=== PATIENT | male | born 1935 | race Caucasian/White ===

== ENCOUNTER 2021-11-08 12:06 | Inpatient (IN) | payer MEDICARE ==
[~2021-11-08] VITALS: Ht 180.3 cm; Wt 65.8 kg
[2021-11-08] MEDS ORDERED: CEFTRIAXONE 1 GM VIAL IM ONE (12:45)
[2021-11-08] MEDS ORDERED: ACETAMINOPHEN 325 MG TAB PO ONE (12:45)
[2021-11-08] MEDS ORDERED: SODIUM CHLORIDE 0.9% 500ML 500 ML IV ONE (12:45)
[2021-11-08] MEDS ORDERED: ALBUTEROL SULFATE HFA 8GM INHALATION AEROSOL INH PRN (12:45)
[2021-11-08 13:13] LABS: BASOPHILS # (AUTO) 0.1 (0.0-0.1); BASOPHILS % 0.6 % (0.0-1.0); EOSINOPHILS # (AUTO) 0.1 (0.0-0.4); EOSINOPHILS % 0.3 % (0.0-6.0); HEMATOCRIT 43.3 % (38.2-49.6); HEMOGLOBIN 13.2 g/dL (14.0-18.0); LYMPHOCYTES # (AUTO) 3.2 (1.0-3.2); LYMPHOCYTES % 20.2 % (18.0-39.1); MEAN CORPUSCULAR HEMOGLOBIN 31.1 pg (28-32); MEAN CORPUSCULAR HGB CONC 30.5 g/dL (31-35); MEAN CORPUSCULAR VOLUME 101.9 fL (81-99); MONOCYTES # (AUTO) 1.8 (0.2-0.8); MONOCYTES % 11.6 % (4.4-11.3); NEUTROPHILS # (AUTO) 10.5 (2.1-6.9); NEUTROPHILS % 66.8 % (38.7-80.0); PLATELET COUNT 139 x10e3/uL (140-360); RED BLOOD COUNT 4.25 x10e6/uL (4.3-5.7); RED CELL DISTRIBUTION WIDTH 16.6 % (11.7-14.4)
[2021-11-08] MEDS ORDERED: CEFTRIAXONE 1 GM in SODIUM CHLORIDE 0.9% 50ML 50 ML IV ONE (13:15)
[2021-11-08 13:18] LABS: INR 0.97; PROTHROMBIN TIME 13.7 seconds (11.9-14.5)
[2021-11-08 13:19] LABS: PARTIAL THROMBOPLASTIN TIME 35.1 seconds (23.8-35.5)
[2021-11-08 14:29] LABS: ALBUMIN/GLOBULIN RATIO 0.5 (0.8-2.0); ALKALINE PHOSPHATASE 99 IU/L (40-150); ANION GAP 14.4 mmol/L (8-16); BLOOD UREA NITROGEN 29 mg/dL (7-26); BUN/CREATININE RATIO 35 (6-25); CALCIUM 7.8 mg/dL (8.4-10.2); CARBON DIOXIDE 20 mmol/L (22-29); CHLORIDE 110 mmol/L (98-107); CREATINE KINASE 120 IU/L (30-200); CREATININE, SERUM 0.84 mg/dL (0.72-1.25); EST GLOMERULAR FILTRATION RATE 86 ML/MIN (60-); GLUCOSE 101 mg/dL (74-118); POTASSIUM 4.4 mmol/L (3.5-5.1); SODIUM 140 mmol/L (136-145)
[2021-11-08 14:30] LABS: ALANINE AMINOTRANSFERASE < 6 IU/L (0-55)
[2021-11-08 14:39] LABS: CLARITY,URINE CLEAR (CLEAR); COLOR,URINE YELLOW (YELLOW); LEUKOCYTE ESTERASE ,URINE NEGATIVE (NEGATIVE); NITRITE,URINE NEGATIVE (NEGATIVE); PROTEIN,URINE DIPSTICK TRACE (NEGATIVE)
[2021-11-08 14:40] LABS: KETONES,URINE NEGATIVE (NEGATIVE); URINE UROBILINOGEN 0.2 mg/dL (0.2 - 1)
[2021-11-08 14:50] LABS: MUCUS,URINE FEW (RARE)
[2021-11-08] MEDS ORDERED: SODIUM CHLORIDE 0.9% 250ML 250 ML ONE (14:58)
[2021-11-08] MEDS ORDERED: ALBUTEROL/IPRATROPIUM 3 ML NEB NEB ONE (15:45)
[2021-11-08] MEDS ORDERED: ALBUTEROL SULF 0.083% NEB SOLN 3 ML NEB ONE (16:01)
[2021-11-08] MEDS ORDERED: KEFLEX750 MG (16:10)
[2021-11-08] MEDS ORDERED: METOPROLOL TART50 MG PO (16:10)
[2021-11-08] MEDS ORDERED: TIMOLOL MALEAT1 EACH (16:14)
[2021-11-08] MEDS ORDERED: VOLTAREN ARTHRI20 GM (16:14)
[2021-11-08] MEDS ORDERED: TEMAZEPAM30 MG (16:14)
[2021-11-08] MEDS ORDERED: VITAMIN B122500 MCG (16:14)
[2021-11-08] MEDS ORDERED: VITAMIN D3 COM1 EACH PO (16:14)
[2021-11-08] MEDS ORDERED: HYDROCODON-ACE1 EAC9 (16:14)
[2021-11-08] MEDS ORDERED: LUMIGAN2.5 M1 OP (16:14)
[2021-11-08] MEDS: SODIUM CHLORIDE 0.9% 1000ML 1,000 ML IV SCH ×2 (16:26→23:54)
[2021-11-08] MEDS: Vancomycin IV 1 GM in SODIUM CHLORIDE 0.9% 250ML 250 ML IV SCH (16:27)
[2021-11-08] MEDS: METOPROLOL TARTRATE 50 MG TAB PO SCH (16:27)
[2021-11-08] MEDS ORDERED: DICLOFENAC SOD 1% GEL 100 GM TUBE TP PRN (16:30)
[2021-11-08 17:15] LABS: CREATINE KINASE MB 2.9 ng/mL (0-5.0)
[2021-11-08 18:18] VITALS: BP 121/78
[2021-11-08 18:21] VITALS: BP 121/78
[2021-11-08 20:00] VITALS: BP 107/80
[2021-11-08] MEDS ORDERED: MAGNESIUM/ALUMINUM/SIMETHICONE 30 ML UDC PO ONE (20:45)
[2021-11-08] MEDS: BIMATOPROST(OPTH) 2.5 ML BOTTLE OP SCH (21:10)
[2021-11-08] MEDS: CEFTRIAXONE 1 GM in SODIUM CHLORIDE 0.9% 50ML 50 ML IV SCH (21:10)
[2021-11-08] MEDS: HYDROCODONE/APAP 7.5MG-325MG 1 EA TAB PO PRN (21:10)
[2021-11-09] VITALS (9 sets, daily range): BP systolic 99–152; BP diastolic 51–82
[2021-11-09] MEDS: HYDROCODONE/APAP 7.5MG-325MG 1 EA TAB PO PRN ×4 (01:25→18:29)
[2021-11-09 05:30] LABS: BASOPHILS # (AUTO) 0.1 (0.0-0.1); BASOPHILS % 0.6 % (0.0-1.0); EOSINOPHILS % 0.1 % (0.0-6.0); HEMATOCRIT 34.5 % (38.2-49.6); HEMOGLOBIN 10.8 g/dL (14.0-18.0); LYMPHOCYTES # (AUTO) 2.7 (1.0-3.2); LYMPHOCYTES % 16.6 % (18.0-39.1); MEAN CORPUSCULAR HEMOGLOBIN 30.6 pg (28-32); MEAN CORPUSCULAR HGB CONC 31.3 g/dL (31-35); MEAN CORPUSCULAR VOLUME 97.7 fL (81-99); MONOCYTES # (AUTO) 2.1 (0.2-0.8); MONOCYTES % 12.8 % (4.4-11.3); NEUTROPHILS # (AUTO) 11.3 (2.1-6.9); NEUTROPHILS % 69.3 % (38.7-80.0); PLATELET COUNT 144 x10e3/uL (140-360); RED BLOOD COUNT 3.53 x10e6/uL (4.3-5.7); RED CELL DISTRIBUTION WIDTH 16.2 % (11.7-14.4)
[2021-11-09] MEDS: Vancomycin IV 1 GM in SODIUM CHLORIDE 0.9% 250ML 250 ML IV SCH ×2 (05:35→17:30)
[2021-11-09 05:58] LABS: ALBUMIN 1.7 g/dL (3.5-5.0); ALBUMIN/GLOBULIN RATIO 0.5 (0.8-2.0); ALKALINE PHOSPHATASE 87 IU/L (40-150); ANION GAP 12.6 mmol/L (8-16); BLOOD UREA NITROGEN 24 mg/dL (7-26); BUN/CREATININE RATIO 32 (6-25); CALCIUM 7.5 mg/dL (8.4-10.2); CARBON DIOXIDE 22 mmol/L (22-29); CHLORIDE 110 mmol/L (98-107); CREATININE, SERUM 0.74 mg/dL (0.72-1.25); EST GLOMERULAR FILTRATION RATE 100 ML/MIN (60-); GLUCOSE 99 mg/dL (74-118); POTASSIUM 3.6 mmol/L (3.5-5.1); SODIUM 141 mmol/L (136-145)
[2021-11-09 06:14] LABS: ALANINE AMINOTRANSFERASE < 6 IU/L (0-55)
[2021-11-09 08:30] LABS: CREATINE KINASE MB 1.5 ng/mL (0-5.0)
[2021-11-09] MEDS: FAMOTIDINE 20 MG TAB PO SCH ×2 (08:53→17:30)
[2021-11-09] MEDS: METOPROLOL TARTRATE 50 MG TAB PO SCH ×2 (08:53→17:30)
[2021-11-09] MEDS: ALBUTEROL/IPRATROPIUM 3 ML NEB NEB SCH ×3 (09:00→19:35)
[2021-11-09] MEDS: CEFTRIAXONE 1 GM in SODIUM CHLORIDE 0.9% 50ML 50 ML IV SCH ×2 (09:01→20:34)
[2021-11-09] MEDS: BIMATOPROST(OPTH) 2.5 ML BOTTLE OP SCH (20:34)
[2021-11-09] MEDS: MUPIROCIN 2% OINT 22 GM TUBE TOP SCH (20:35)
[2021-11-10] VITALS (8 sets, daily range): BP systolic 125–152; BP diastolic 57–91
[2021-11-10] MEDS: ALBUTEROL/IPRATROPIUM 3 ML NEB NEB SCH ×4 (00:50→19:25)
[2021-11-10] MEDS: Vancomycin IV 1 GM in SODIUM CHLORIDE 0.9% 250ML 250 ML IV SCH (05:30)
[2021-11-10 05:36] LABS: BASOPHILS # (AUTO) 0.1 (0.0-0.1); BASOPHILS % 0.4 % (0.0-1.0); EOSINOPHILS # (AUTO) 0.1 (0.0-0.4); EOSINOPHILS % 0.4 % (0.0-6.0); HEMATOCRIT 34.6 % (38.2-49.6); HEMOGLOBIN 11.1 g/dL (14.0-18.0); LYMPHOCYTES # (AUTO) 1.9 (1.0-3.2); LYMPHOCYTES % 7.1 % (18.0-39.1); MEAN CORPUSCULAR HEMOGLOBIN 30.7 pg (28-32); MEAN CORPUSCULAR HGB CONC 32.1 g/dL (31-35); MEAN CORPUSCULAR VOLUME 95.6 fL (81-99); MONOCYTES # (AUTO) 2.3 (0.2-0.8); MONOCYTES % 8.5 % (4.4-11.3); NEUTROPHILS # (AUTO) 21.9 (2.1-6.9); NEUTROPHILS % 82.1 % (38.7-80.0); PLATELET COUNT 131 x10e3/uL (140-360); RED BLOOD COUNT 3.62 x10e6/uL (4.3-5.7); RED CELL DISTRIBUTION WIDTH 15.9 % (11.7-14.4)
[2021-11-10 05:57] LABS: ANION GAP 13.6 mmol/L (8-16); CREATININE, SERUM 0.81 mg/dL (0.72-1.25); POTASSIUM 3.6 mmol/L (3.5-5.1)
[2021-11-10 08:03] LABS: BAND NEUTROPHILS % (MANUAL) 2 %; LYMPHOCYTES % (MANUAL) 5 % (19-48); MONOCYTES % (MANUAL) 5 % (3.4-9.0); NEUTROPHILS % (MANUAL) 88 % (40-74); PLATELET ESTIMATE SLIGHTLY DECREASED
[2021-11-10 08:04] LABS: PLATELET MORPHOLOGY COMMENT NORMAL; RBC MORPHOLOGY COMMENT NORMAL
[2021-11-10] MEDS: FAMOTIDINE 20 MG TAB PO SCH ×2 (08:30→16:33)
[2021-11-10] MEDS: METOPROLOL TARTRATE 50 MG TAB PO SCH ×2 (09:45→16:33)
[2021-11-10] MEDS: MUPIROCIN 2% OINT 22 GM TUBE TOP SCH ×2 (09:45→16:33)
[2021-11-10] MEDS: CEFTRIAXONE 1 GM in SODIUM CHLORIDE 0.9% 50ML 50 ML IV SCH ×2 (09:45→21:00)
[2021-11-10] MEDS ORDERED: METRONIDAZOLE 500MG/NS 100ML 100 ML IV SCH (10:30)
[2021-11-10] MEDS ORDERED: BISACODYL 10 MG SUPP PR NR (10:45)
[2021-11-10] MEDS: CIPROFLOXACIN 400 MG/D5W 200ML 200 ML IV SCH ×2 (11:45→23:12)
[2021-11-10] MEDS: METRONIDAZOLE 500 MG TAB PO SCH ×2 (11:46→18:19)
[2021-11-10] MEDS: HYDROCODONE/APAP 7.5MG-325MG 1 EA TAB PO PRN ×2 (16:43→21:10)
[2021-11-10] MEDS: BIMATOPROST(OPTH) 2.5 ML BOTTLE OP SCH (21:00)
[2021-11-11] VITALS (7 sets, daily range): BP systolic 107–136; BP diastolic 63–93
[2021-11-11] MEDS: ALBUTEROL/IPRATROPIUM 3 ML NEB NEB SCH ×4 (00:25→20:00)
[2021-11-11] MEDS: HYDROCODONE/APAP 7.5MG-325MG 1 EA TAB PO PRN ×3 (01:12→20:20)
[2021-11-11] MEDS: METRONIDAZOLE 500 MG TAB PO SCH ×5 (06:03→23:45)
[2021-11-11] MEDS: FAMOTIDINE 20 MG TAB PO SCH ×2 (08:15→16:04)
[2021-11-11 08:21] LABS: BASOPHILS # (AUTO) 0.1 (0.0-0.1); BASOPHILS % 0.4 % (0.0-1.0); HEMATOCRIT 36.3 % (38.2-49.6); HEMOGLOBIN 11.2 g/dL (14.0-18.0); LYMPHOCYTES # (AUTO) 1.9 (1.0-3.2); LYMPHOCYTES % 6.5 % (18.0-39.1); MEAN CORPUSCULAR HGB CONC 30.9 g/dL (31-35); MEAN CORPUSCULAR VOLUME 100.6 fL (81-99); MONOCYTES # (AUTO) 1.7 (0.2-0.8); MONOCYTES % 5.8 % (4.4-11.3); NEUTROPHILS % 86.6 % (38.7-80.0); PLATELET COUNT 138 x10e3/uL (140-360); RED BLOOD COUNT 3.61 x10e6/uL (4.3-5.7)
[2021-11-11 08:33] LABS: ANION GAP 14.4 mmol/L (8-16); CALCIUM 7.5 mg/dL (8.4-10.2); CREATININE, SERUM 0.77 mg/dL (0.72-1.25); POTASSIUM 3.4 mmol/L (3.5-5.1)
[2021-11-11] MEDS ORDERED: POTASSIUM CHLORIDE 10MEQ EA PO NR ×2 (09:45→12:30)
[2021-11-11] MEDS: MUPIROCIN 2% OINT 22 GM TUBE TOP SCH ×2 (10:00→16:04)
[2021-11-11] MEDS: METOPROLOL TARTRATE 50 MG TAB PO SCH ×2 (10:00→16:04)
[2021-11-11] MEDS: CEFTRIAXONE 1 GM in SODIUM CHLORIDE 0.9% 50ML 50 ML IV SCH ×2 (10:00→21:15)
[2021-11-11] MEDS: CIPROFLOXACIN 400 MG/D5W 200ML 200 ML IV SCH ×2 (10:36→22:44)
[2021-11-11] MEDS: BIMATOPROST(OPTH) 2.5 ML BOTTLE OP SCH (20:26)
[2021-11-12] VITALS: BP 134/59
[2021-11-12] MEDS: HYDROCODONE/APAP 7.5MG-325MG 1 EA TAB PO PRN (02:00)
[2021-11-12] MEDS: ALBUTEROL/IPRATROPIUM 3 ML NEB NEB SCH ×2 (02:05→06:55)
[2021-11-12 04:00] VITALS: BP 108/56
[2021-11-12] MEDS: METRONIDAZOLE 500 MG TAB PO SCH (05:25)
[2021-11-12 05:40] LABS: BASOPHILS # (AUTO) 0.1 (0.0-0.1); BASOPHILS % 0.4 % (0.0-1.0); EOSINOPHILS # (AUTO) 0.1 (0.0-0.4); EOSINOPHILS % 0.4 % (0.0-6.0); HEMATOCRIT 31.5 % (38.2-49.6); HEMOGLOBIN 9.9 g/dL (14.0-18.0); LYMPHOCYTES # (AUTO) 2.3 (1.0-3.2); MEAN CORPUSCULAR HEMOGLOBIN 30.4 pg (28-32); MEAN CORPUSCULAR HGB CONC 31.4 g/dL (31-35); MEAN CORPUSCULAR VOLUME 96.6 fL (81-99); MONOCYTES # (AUTO) 1.5 (0.2-0.8); MONOCYTES % 5.8 % (4.4-11.3); NEUTROPHILS # (AUTO) 21.1 (2.1-6.9); NEUTROPHILS % 83.6 % (38.7-80.0); PLATELET COUNT 104 x10e3/uL (140-360); RED BLOOD COUNT 3.26 x10e6/uL (4.3-5.7); RED CELL DISTRIBUTION WIDTH 16.1 % (11.7-14.4)
[2021-11-12 06:22] LABS: ALBUMIN 1.6 g/dL (3.5-5.0); ALBUMIN/GLOBULIN RATIO 0.6 (0.8-2.0); ANION GAP 12.1 mmol/L (8-16); CALCIUM 7.1 mg/dL (8.4-10.2); CREATININE, SERUM 0.71 mg/dL (0.72-1.25); POTASSIUM 3.1 mmol/L (3.5-5.1)
[2021-11-12] MEDS: FAMOTIDINE 20 MG TAB PO SCH (07:30)
[2021-11-12] MEDS: CEFTRIAXONE 1 GM in SODIUM CHLORIDE 0.9% 50ML 50 ML IV SCH (09:00)
[2021-11-12] MEDS: MUPIROCIN 2% OINT 22 GM TUBE TOP SCH (09:00)
[2021-11-12] MEDS: METOPROLOL TARTRATE 50 MG TAB PO SCH (09:00)
[2021-11-12] MEDS ORDERED: POTASSIUM CHLORIDE 10MEQ EA PO ONE ×2 (09:30→11:00)
[2021-11-12] MEDS ORDERED: POTASSIUM CHLORIDE 20 MEQ TAB CR PO ONE (10:33)
[2021-11-12 11:18] LABS: EOSINOPHILS % (MANUAL) 1 % (0-7); LYMPHOCYTES % (MANUAL) 5 % (19-48); MONOCYTES % (MANUAL) 5 % (3.4-9.0); NEUTROPHILS % (MANUAL) 89 % (40-74)
[2021-11-12 11:19] LABS: PLATELET ESTIMATE SLIGHTLY DECREASED; PLATELET MORPHOLOGY COMMENT NORMAL; RBC MORPHOLOGY COMMENT NORMAL
[2021-11-12 11:23] VITALS: BP 124/81
[2021-11-13] MEDS ORDERED: BALSAM PERU/CASTOR OIL 60 GM OINT...G. TP SCH (09:00)
== END 2021-11-12 11:30 | disposition hospice, home (50) | DRG 871 ==
LOC: ER 12:13 → ERHOLD 15:50 → MED/SURG 17:42
PROVIDERS: ADMIT Internal Medicine; ATTEND Internal Medicine
DX: A41.9 Sepsis, unspecified organism (principal); E43 Unspecified severe protein-calorie malnutrition; I50.32 Chronic diastolic (congestive) heart failure; K57.32 Diverticulitis of large intestine without perforation or abscess without bleeding; L97.319 Non-pressure chronic ulcer of right ankle with unspecified severity; L03.115 Cellulitis of right lower limb; I11.0 Hypertensive heart disease with heart failure; J44.9 Chronic obstructive pulmonary disease, unspecified; R62.7 Adult failure to thrive; Z68.20 Body mass index [BMI] 20.0-20.9, adult; F17.210 Nicotine dependence, cigarettes, uncomplicated; D63.8 Anemia in other chronic diseases classified elsewhere; Z66 Do not resuscitate; Z20.822 Contact with and (suspected) exposure to COVID-19; H54.8 Legal blindness, as defined in USA; L89.301 Pressure ulcer of unspecified buttock, stage 1
CPT/HCPCS: 36415; 36600; 51700; 70450; 71045; 74177; 80048; 80053; 80202; 81001; 82550; 82553; 83605; 84484; 85025; 85610; 85730; 87040; 87086; 93005; 94799; 99251; 99285; J0456; J0696; J3370; J7030; J7040; J7050; U0002